=== PATIENT | female | born 1975 | race Hispanic/Latino ===

== ENCOUNTER 2023-12-23 05:49 | Day surgery (SDC) | payer OTHER ==
[2023-12-23] VITALS (8 sets, daily range): BP systolic 108–124; BP diastolic 63–79; PULSE 64–77; RESP 11–16
[~2023-12-23] VITALS: Ht 160 cm; Wt 50.8 kg
[2023-12-23] MEDS: 0.9%NACL 1000ML 1,000 ML IV ONE (06:21)
[2023-12-23] MEDS ORDERED: PROPOFOL 10 MG/ML 20ML VIAL IV ONE (07:42)
[2023-12-23] MEDS ORDERED: LIDOCAINE PF 100MG/5ML (2%) SYRINGE 5ML ONE (07:42)
[2023-12-23] MEDS ORDERED: PHENYLEPHRINE HCL 10 MG/ML 1ML VIAL IV ONE (08:00)
== END 2023-12-23 09:35 | disposition home or self-care (01) ==
LOC: ENDO 05:49 → DAH 05:49 → ENDO 09:35
PROVIDERS: ATTEND Surgery
DX: R93.3 Abnormal findings on diagnostic imaging of other parts of digestive tract (principal); K63.89 Other specified diseases of intestine; K57.30 Diverticulosis of large intestine without perforation or abscess without bleeding; Z82.49 Family history of ischemic heart disease and other diseases of the circulatory system; Z98.891 History of uterine scar from previous surgery
CPT/HCPCS: 81025; 45331; J7030 ×2; J2001; J2704; J2371; A4620; A4215 ×2; A4223; A7002; A4222; A4221; A4663; A4606; J3490